=== PATIENT | female | born 1950 | race Caucasian/White ===

== ENCOUNTER 2017-05-17 10:42 | Emergency (ER) | payer BC ==
[~2017-05-17] VITALS: Ht 157.5 cm; Wt 64.5 kg
[2017-05-17 10:49] VITALS: Ht 157.5 cm; Wt 64.5 kg
[2017-05-17 11:44] LABS: BASOPHILS % 0.6 % (0.0-2.0); EOSINOPHILS # 0.2 10^3/ul (0.0-0.5); EOSINOPHILS % 3.5 % (0.0-7.0); HEMATOCRIT 39.3 % (37.0-47.0); HEMOGLOBIN 13.2 g/dl (12.0-16.0); LYMPHOCYTES # 1.4 10^3/ul (0.8-2.9); LYMPHOCYTES % 29.6 % (15.0-51.0); MEAN CORPUSCULAR HEMOGLOBIN 30.8 pg (29.0-33.0); MEAN CORPUSCULAR HGB CONC 33.6 g/dl (32.0-37.0); MEAN CORPUSCULAR VOLUME 91.6 fl (82.0-101.0); MEAN PLATELET VOLUME 11.5 fl (7.4-10.4); MONOCYTE # 0.4 10^3/ul (0.3-0.9); MONOCYTES % 7.3 % (0.0-11.0); NEUTROPHIL # 2.8 10^3/ul (1.6-7.5); NEUTROPHILS % 58.8 % (39.0-77.0); PLATELET COUNT 189 10^3/UL (140-415); RED BLOOD COUNT 4.29 10^6/ul (4.20-5.40); RED CELL DISTRIBUTION WIDTH 12.3 % (11.5-14.5); WHITE BLOOD COUNT 4.8 10^3/ul (4.8-10.8)
--- NOTE | 2017-05-17 12:05 | ERD ---
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 The patient was sent to the emergency room for further evaluation of her DVT. The patient does describe intermittent leg cramping over several weeks. She denies any chest pain or shortness breath, no pleuritic pain, no other symptoms currently. The patient has not had a history of bleeding, no intracranial hemorrhage, no rectal bleeding and she tolerated anticoagulation in the past when she had her clot. The patient states that she had a provoked DVT years ago from a hysterectomy. Unclear trigger this time. ROS All systems reviewed and are negative except as per history of present illness. Medications Home Meds Active Scripts Apixaban* (Eliquis*) 5 Mg Tablet, 5 MG PO BID for 30 Days, TAB Prov:KRISTIE BUCHANAN MD 05/17/17 PMhx/Soc History of Surgery: Yes (appendectomy, hysterectomy) Hx Miscellaneous Medical Probl: Yes (gallstones, dvt) Hx Alcohol Use: No Hx Substance Use: No Hx Tobacco Use: No Smoking Status: Never smoker FmHx Family History: No diabetes Physical Exam Vitals Vital Signs Date Time Temp Pulse Resp B/P Pulse Ox O2 Delivery O2 Flow Rate FiO2 05/17/17 10:49 97.4 75 18 118/62 99 Physical Exam General: Well developed, well nourished, no acute distress Head: Normocephalic, atraumatic. Eyes: Pupils equally reactive, EOM intact ENT: Moist mucous membranes Neck: Supple, no lymphadenopathy Respiratory: Lungs clear bilaterally, no distress Cardiovascular: RRR, no murmurs, rubs, or gallops Abdominal: Soft, non-tender, non-distended, no peritoneal signs : Deferred MSK: Scant left lower extremity edema greater than right, no unilateral swelling , 5/5 strength Neurologic: Alert and oriented, moving all extremities, normal speech, no focal weakness, no cerebellar signs Skin: No rash Psych: Normal mood Result Diagram: 05/17/17 1120 Results 24 hrs Laboratory Tests Test 05/17/17 11:20 White Blood Count 4.810^3/ul Red Blood Count 4.2910^6/ul Hemoglobin 13.2g/dl Hematocrit 39.3% Mean Corpuscular Volume 91.6fl Mean Corpuscular Hemoglobin 30.8pg Mean Corpuscular Hemoglobin Concent 33.6g/dl Red Cell Distribution Width 12.3% Platelet Count 46844^3/UL Mean Platelet Volume 11.5fl Neutrophils % 58.8% Lymphocytes % 29.6% Monocytes % 7.3% Eosinophils % 3.5% Basophils % 0.6% Nucleated Red Blood Cells % 0.0/100WBC Neutrophils # 2.810^3/ul Lymphocytes # 1.410^3/ul Monocytes # 0.410^3/ul Eosinophils # 0.210^3/ul Basophils # 0.010^3/ul Nucleated Red Blood Cells # 0.010^3/ul Prothrombin Time 12.9Sec Prothrombin Time Ratio 1.0 INR International Normalized Ratio 0.97 Activated Partial Thromboplast Time 28.1Sec Procedures/MDM EKG, MONITORS, & DIAGNOSTIC IMAGING: I reviewed the lower extremity duplex from the physician's office today. The formal read shows a positive partial DVT at the left common femoral vein and left saphenous no other evidence of DVT. LAB INTERPRETATION: No coagulopathy MEDICAL DECISION MAKING: The patient presents with a new diagnosis of a DVT to the left lower extremity with minimal symptoms. No signs or symptoms concerning for pulmonary embolism. The patient has no complications to anticoagulation. The patient's HAS-BLED score is 0. I believe the benefits of anticoagulation outweigh the risk. The patient will be initiated on Eliquis. I was able to speak to the patient's bleaching supervisor to recommend anticoagulation and states no contraindications. I was able speak to the patient's primary care physician Dr. Arriaza who agrees with anticoagulation and will follow up in his office. The patient is undergoing preop for gallbladder surgery. Further conversations with primary care as needed. ER COURSE: The patient has no evidence of coagulopathy. She was initiated on Eliquis. A prescription for Eliquis will be provided. I kept the patient and/or family informed of laboratory and diagnostic imaging results throughout the emergency room course. DISPOSITION PLAN: We discussed follow up with the patient's primary care doctor within 24 to 48 hours as needed. We also discussed return to the emergency room for worsening symptoms or worsening condition. Outpatient referral: [None required] Discharge Medications: Eliquis 10 mg twice daily for 7 days then 5 mg twice daily Departure Diagnosis: Primary Impression: DVT (deep venous thrombosis) DVT location: lower extremity Affected thrombotic vein of extremity: other lower extremity vein Laterality: left Chronicity: acute Qualified Code: I82.492 - Acute deep vein thrombosis (DVT) of other specified vein of left lower extremity Condition: Stable KRISTIE BUCHANAN MD May 17, 2017 12:05
[2017-05-17 12:09] LABS: PARTIAL THROMBOPLASTIN TIME 28.1 Sec (25.0-35.0)
[2017-05-17] MEDS ORDERED: APIX5TAB PO (12:17)
[2017-05-17 12:57] LABS: INR 0.97; PROTIME 12.9 Sec (12.2-14.2)
[2017-05-17 13:59] VITALS: BP 120/73; PULSE 80; RESP 17
== END 2017-05-17 14:00 | disposition home or self-care (01) ==
LOC: E/R 10:42
DX: I82.492 Acute embolism and thrombosis of other specified deep vein of left lower extremity (principal); Z79.01 Long term (current) use of anticoagulants
CPT/HCPCS: 36415; 85025; 85610; 85730; 99283

== ENCOUNTER 2017-09-13 13:33 | Inpatient (IN) | payer BC ==
[~2017-09-13] VITALS: Ht 165.1 cm; Wt 63.9 kg
[~2017-09-13 13:33] MED LIST: APIX5TAB PO
[2017-09-13] MEDS ORDERED: SOD CHLORIDE 0.9% 1,000 ML IV STA (17:11)
[2017-09-13] MEDS ORDERED: METOCLOPRAMIDE 10 MG INJ IV STA (17:11)
[2017-09-13 17:49] LABS: BASOPHILS % 0.5 % (0.0-2.0); EOSINOPHILS # 0.2 10^3/ul (0.0-0.5); HEMATOCRIT 42.9 % (37.0-47.0); HEMOGLOBIN 14.2 g/dl (12.0-16.0); LYMPHOCYTES # 1.8 10^3/ul (0.8-2.9); LYMPHOCYTES % 29.6 % (15.0-51.0); MEAN CORPUSCULAR HEMOGLOBIN 30.1 pg (29.0-33.0); MEAN CORPUSCULAR HGB CONC 33.1 g/dl (32.0-37.0); MEAN CORPUSCULAR VOLUME 91.1 fl (82.0-101.0); MEAN PLATELET VOLUME 10.8 fl (7.4-10.4); MONOCYTE # 0.4 10^3/ul (0.3-0.9); NEUTROPHIL # 3.7 10^3/ul (1.6-7.5); NEUTROPHILS % 60.7 % (39.0-77.0); PLATELET COUNT 208 10^3/UL (140-415); RED BLOOD COUNT 4.71 10^6/ul (4.20-5.40); RED CELL DISTRIBUTION WIDTH 12.3 % (11.5-14.5)
[2017-09-13] MEDS ORDERED: ACETAMINOPHEN 325 MG TAB PO ONE (18:00)
[2017-09-13 18:14] LABS: ALANINE AMINOTRANSFERASE 39 IU/L (13-69); ALBUMIN 4.2 g/dl (3.3-4.9); ALBUMIN/GLOBULIN RATIO 1.13; ALKALINE PHOSPHATASE 109 IU/L (42-121); ANION GAP 11 (8-16); ASPARTATE AMINO TRANSFERASE 24 IU/L (15-46); BILIRUBIN,INDIRECT 0.6 mg/dl (0-1.1); BILIRUBIN,TOTAL 0.6 mg/dl (0.2-1.3); BLOOD UREA NITROGEN 15 mg/dl (7-20); CALCIUM 9.5 mg/dl (8.4-10.2); CARBON DIOXIDE 30 mmol/L (21-31); CHLORIDE 105 mmol/L (97-110); CREATININE 0.59 mg/dl (0.44-1.00); GLUCOSE 92 mg/dl (70-220); POTASSIUM 4.3 mmol/L (3.5-5.1); SODIUM 142 mmol/L (135-144); TOTAL PROTEIN 7.9 g/dl (6.1-8.1)
[2017-09-13 18:28] LABS: TROPONIN-I < 0.012 ng/ml (0.00-0.12)
[2017-09-13] MEDS: BENZTROPINE 2 MG INJ IV ONE ×2 (18:35→18:40)
--- NOTE | 2017-09-13 18:47 | RADRPT ---
PROCEDURE: Noncontrast CT Head. CLINICAL INDICATION: Sign onset "head heaviness with sweats" TECHNIQUE: Noncontrast CT of the head was obtained. The administered radiation dose was CTDI vol = 45.01 mGy, DLP = 720.23 mGy-cm. One or more of the following dose reduction techniques were used: Au tomated exposure control, Adjustment of the mA and/or kV according to patient size, or Use of iterat kaylee reconstruction technique. COMPARISON: There are no similar studies submitted for comparison. FINDINGS: There is no acute intracranial hemorrhage, midline shift, or mass effect. The cerebral herrera-white ma tter differentiation appears preserved. No extra-axial collection is seen. There is mild diffuse cer ebral volume loss. A few small patchy areas of low attenuation in the left navarro radiata and centru m semiovale are nonspecific, but suggestive of chronic ischemic change. These patchy low attenuation lesions are in a somewhat linear AP orientation, compatible with unilateral white matter watershed/ border zone distribution, suggesting possible left internal carotid artery atherosclerotic disease/s tenosis. The basal cisterns are preserved. The posterior fossa structures are grossly unremarkable, although suboptimally evaluated with CT secondary to beam-hardening artifact. The orbits, as visuali zed, are grossly unremarkable. The visualized paranasal sinuses and mastoid air cells are clear. No acute fracture or suspicious osseous lesion is identified. IMPRESSION: 1. No evidence of an acute intracranial process. 2. A few small patchy areas of low attenuation in the left navarro radiata and centrum semiovale, non specific, but suggestive of chronic ischemic change. These lesions are in a somewhat linear AP orien tation, compatible with unilateral white matter watershed/border zone distribution and suggesting po ssible left internal carotid artery (extracranial and / or intracranial) atherosclerotic disease/michael nosis. Consider CTA head/neck for further evaluation. If there is clinical concern for acute ischemi a, MRI brain with diffusion weighted imaging may provide a more sensitive evaluation. 3. Mild diffuse cerebral volume loss. Call report was made to Dr. Reinaldo Wood at 18:43 on 09/13/2017. RPTAT: [facility] Ryanny Vaughn, Physician Date Time Electronically viewed and signed by Govind Mendes, Physician on 09/13/2017 18:47 RC/
[2017-09-13 18:58] LABS: ADD UMIC NO; UR ASCORBIC ACID NEGATIVE (NEGATIVE); UR BILIRUBIN (Dip) NEGATIVE (NEGATIVE); UR BLOOD (Dip) NEGATIVE (NEGATIVE); UR CLARITY CLEAR (CLEAR); UR COLOR COLORLESS (YELLOW); UR GLUCOSE (Dip) NEGATIVE (NEGATIVE); UR KETONES (Dip) NEGATIVE (NEGATIVE); UR LEUKOCYTE ESTERASE (Dip) NEGATIVE Leu/ul (NEGATIVE); UR NITRITE (Dip) NEGATIVE (NEGATIVE); UR SPECIFIC GRAVITY (Dip) 1.003 (1.003-1.030); UR TOTAL PROTEIN (Dip) NEGATIVE (NEGATIVE); UR UROBILINOGEN (Dip) NEGATIVE (NEGATIVE)
[2017-09-13] MEDS ORDERED: ACETAMINOPHEN 325 MG TAB PO PRN ×2 (20:30→23:00)
[2017-09-13] MEDS ORDERED: ASPIRIN 81 MG TAB PO ONE (20:30)
[2017-09-13] MEDS ORDERED: ONDANSETRON 4 MG INJ IV PRN ×2 (20:30→23:00)
--- NOTE | 2017-09-13 20:52 | ERD ---
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 She also felt dizzy as an very lightheaded and was diaphoretic. She states that this is somewhat resolved her head still feels somewhat heavy. It is her birthday and she was feeling well all day until this episode. She has no history of stroke. Has no other neurological deficits or weaknesses. No chest pain or shortness of breath. ROS All systems reviewed and are negative except as per history of present illness. Medications Home Meds Active Scripts Apixaban* (Eliquis*) 5 Mg Tablet, 5 MG PO BID for 30 Days, TAB Prov:KRISTIE BUCHANAN MD 05/17/17 PMhx/Soc History of Surgery: Yes (appendectomy, hysterectomy) Anesthesia Reaction: No Hx Neurological Disorder: No Hx Respiratory Disorders: No Hx Cardiac Disorders: Yes (HTN) Hx Psychiatric Problems: No Hx Miscellaneous Medical Probl: Yes (gallstones, dvt, HYPOTHYROID) Hx Alcohol Use: No Hx Substance Use: No Hx Tobacco Use: No Smoking Status: Never smoker Physical Exam Vitals Vital Signs Date Time Temp Pulse Resp B/P Pulse Ox O2 Delivery O2 Flow Rate FiO2 09/13/17 18:30 69 18 102/58 100 Room Air 09/13/17 13:37 98.0 73 18 137/66 100 Physical Exam Const: [] No distress Head: Atraumatic Eyes: Normal Conjunctiva EOMI, PERRLA ENT: Normal External Ears, Nose and Mouth. Neck: Full range of motion..~ No meningismus. Resp: Clear to auscultation bilaterally Cardio: Regular rate and rhythm, no murmurs Abd: Soft, non tender, non distended. Normal bowel sounds Skin: No petechiae or rashes Ext: No cyanosis, or edema Neur: Awake and alert oriented 3, cranial nerves II through XII intact, no cerebellar deficits, NIH equals 0 Psych: Normal Mood and Affect Result Diagram: 09/13/17 17309/13/17 173 Results 24 hrs Laboratory Tests Test 09/13/17 17:29 09/13/17 17:30 09/13/17 18:15 Lactic Acid Level 1.0mmol/L White Blood Count 6.010^3/ul Red Blood Count 4.7110^6/ul Hemoglobin 14.2g/dl Hematocrit 42.9% Mean Corpuscular Volume 91.1fl Mean Corpuscular Hemoglobin 30.1pg Mean Corpuscular Hemoglobin Concent 33.1g/dl Red Cell Distribution Width 12.3% Platelet Count 16592^3/UL Mean Platelet Volume 10.8fl Neutrophils % 60.7% Lymphocytes % 29.6% Monocytes % 6.0% Eosinophils % 3.0% Basophils % 0.5% Nucleated Red Blood Cells % 0.0/100WBC Neutrophils # 3.710^3/ul Lymphocytes # 1.810^3/ul Monocytes # 0.410^3/ul Eosinophils # 0.210^3/ul Basophils # 0.010^3/ul Nucleated Red Blood Cells # 0.010^3/ul Sodium Level 142mmol/L Potassium Level 4.3mmol/L Chloride Level 105mmol/L Carbon Dioxide Level 30mmol/L Anion Gap 11 Blood Urea Nitrogen 15mg/dl Creatinine 0.59mg/dl Glucose Level 92mg/dl Calcium Level 9.5mg/dl Total Bilirubin 0.6mg/dl Direct Bilirubin 0.00mg/dl Indirect Bilirubin 0.6mg/dl Aspartate Amino Transf (AST/SGOT) 24IU/L Alanine Aminotransferase (ALT/SGPT) 39IU/L Alkaline Phosphatase 109IU/L Troponin I < 0.012ng/ml Total Protein 7.9g/dl Albumin 4.2g/dl Globulin 3.70g/dl Albumin/Globulin Ratio 1.13 Lipase 34U/L Urine Color COLORLESS Urine Clarity CLEAR Urine pH 7.0 Urine Specific [place] 1.003 Urine Ketones NEGATIVEmg/dL Urine Nitrite NEGATIVEmg/dL Urine Bilirubin NEGATIVEmg/dL Urine Urobilinogen NEGATIVEmg/dL Urine Leukocyte Esterase NEGATIVELeu/ul Urine Hemoglobin NEGATIVEmg/dL Urine Glucose NEGATIVEmg/dL Urine Total Protein NEGATIVEmg/dl Current Medications Medications (Trade) Dose Ordered Sig/Krissy Route PRN Reason Start Time Stop Time Status Last Admin Dose Admin Sodium Chloride (NS) 1,000 ml @ 1,000 mls/hr Q1H STAT IV 09/13/17 17:11 09/13/17 18:10 DC 09/13/17 17:42 Metoclopramide HCl (Reglan) 10 mg ONCE STAT IV 09/13/17 17:11 09/13/17 17:12 DC 09/13/17 17:42 Acetaminophen (Tylenol Tab) 650 mg ONCE ONCE PO 09/13/17 18:00 09/13/17 18:01 DC 09/13/17 18:35 Benztropine Mesylate (Cogentin) 1 mg ONCE ONCE IV 09/13/17 18:30 09/13/17 18:31 DC Aspirin (Aspirin) 324 mg ONCE ONCE PO 09/13/17 20:30 09/13/17 20:31 DC Ondansetron HCl (Zofran Inj) 4 mg ER BRIDGE PRN IV NAUSEA AND/OR VOMITING 09/13/17 20:30 09/14/17 20:29 Acetaminophen (Tylenol Tab) 650 mg ER BRIDGE PRN PO MILD PAIN/FEVER 09/13/17 20:30 09/14/17 20:29 Procedures/MDM Possible chronic cerebral infarction. Patient had a concerning episode of head heaviness with diaphoresis. Radiologist called me after reviewed the CT to tell me that there was significant herrera-white matter changes that would suggest a possible chronic infarct. I recommended a CTA of the head and neck is he is seen this with carotid infarctions. Patient also has a chronic DVT that is been present for years and her femoral vein. She possibly does have a clotting disorder. Is going to be admitted for this. I am admitting to Dr. Steele telemetry for further monitoring and workup to likely receive an MRI as well. EKG interpretation: Normal sinus rhythm rate of 66, normal axis, normal intervals, no ST or T-wave changes concerning for acute ischemia. Normal EKG ore storage drier interpretation: Normal sinus rhythm without arrhythmia CT head interpretation: Since he is at the herrera-white matter differentiation border on the left concerning for possible chronic infarct or other process. I see no acute hemorrhage, no mass-effect, no midline shift, no skull fracture. Departure Diagnosis: Primary Impression: CVA (cerebral vascular accident) Condition: Serious ASAD OWENS DO Sep 13, 2017 20:52
[2017-09-13] MEDS ORDERED: SOD CHLORIDE 0.9% 100 ML ONE (21:00)
[2017-09-13] MEDS ORDERED: IOHEXOL 100 ML ONE (21:00)
[2017-09-13 21:21] VITALS: Ht 165.1 cm; Wt 63.9 kg
[2017-09-13 21:25] VITALS: BP 110/59; PULSE 72; RESP 16
[2017-09-13] MEDS ORDERED: PROP10TA6 PO (21:30)
[2017-09-13] MEDS ORDERED: RANI150T5 PO (21:30)
[2017-09-13] MEDS ORDERED: IBUP-1542 PO (21:30)
[2017-09-13] MEDS ORDERED: LEVO100T87 PO (21:30)
[2017-09-13 21:35] VITALS: PULSE 62
[2017-09-13] MEDS ORDERED: NACL 0.9% 3 ML SYG IV SCH (23:00)
[2017-09-13] MEDS ORDERED: morphine 2 MG INJ IV PRN (23:00)
[2017-09-13] MEDS ORDERED: SOD CHLORIDE 0.9% 250 ML IV ONE (23:00)
[2017-09-13] MEDS ORDERED: ALBUTEROL/IPRATROPIUM (NEB) 3 ML AMP HHN PRN (23:00)
--- NOTE | 2017-09-13 23:43 | RADRPT ---
PROCEDURE: CTA head and neck CLINICAL INDICATION: White matter changes and CT. TECHNIQUE: The study was performed utilizing a multidetector CT scanner. Direct thin section kim tania 0.625 mm axial sections were obtained through the head and neck after the uneventful administrat ion of 100 ml of Omnipaque 350 nonionic intravenous contrast material. Coronal and sagittal as well as maximal intensity projection reformations were obtained. 3-D images were made. The images were reviewed on a PACS workstation. The total 95.91 mGy and the 521.63 mGy-cm. One or more of the follow ing dose reduction techniques were utilized: Automated exposure control, adjustment of the mA and/o r kV according to patient size, use of iterative reconstruction technique. Carotid stenosis is calcu lated in accordance with NASCET criteria guidelines with direct measurements of the narrowest segmen t of stenosis compared with distal luminal diameter of the normal distal extracranial internal carot id artery. COMPARISON: CT brain 09/13/2017 FINDINGS: CTA NECK: Aortic arch: The aortic arch is normal in caliber. Normal appearance of the origin of the great vessels. Common carotid arteries: The common carotid arteries are patent and normal in caliber bilaterally. Internal carotid arteries: MIRIAM/ECA: New punctate fibrocalcific plaque along the medial origin and distal posterolateral internal carotid artery bulb without focal narrowing or plaque ulceration. The distal internal carotid artery is pa tent and normal in caliber. No evidence of hemodynamically significant stenosis. External carotid artery and its branches are normal patent and normal in caliber LICA/ECA : Normal appearance of the internal carotid artery bulb. The distal internal carotid artery is patent and normal in caliber. No evidence of hemodynamically significant stenosis. Vertebral arteries: The vertebral arteries are patent bilaterally with hypoplastic right and dominant left vertebral art montrell. Multilevel degenerative facet arthropathy and cervical spondylosis/enthesopathy. CTA BRAIN: Precontrast CT images of the brain demonstrate the brain parenchyma to the normal attenuation morpho logy with preservation of herrera white differentiation and age appropriate size of the ventricles and subarachnoid spaces. No intracranial hemorrhage or abnormal extra-axial fluid collection. Unremarkab le posterior fossa contents, orbits, brainstem, calvarium, paranasal sinuses, mastoid air cells. No rmal pituitary axis. The internal carotid arteries are patent and normal in caliber without significant atherosclerotic p laque. The vessels of the anterior posterior circulation are patent and demonstrate normal course and calib er without irregularity, focal stenosis or occlusion. The anterior posterior communicating arteries are intact. The basilar artery is patent and normal in caliber. The posterior communicating arteries are patent and normal in caliber. The vertebral arteries are codominant, patent and normal in caliber. No aneurysm or vascular malformation is identified. The dural venous sinuses , cortical, and intrace rebral veins are patent and normal in caliber. IMPRESSION: 1. Minimal fibrocalcific plaque at the origin of the distal right internal carotid artery bulb with out significant focal narrowing or plaque ulceration. The remaining neck vessels are patent and norm al in caliber. No hemodynamically significant stenosis. 2. Normal intracranial vasculature without intracranial aneurysm, vascular malformation or large br anch occlusion. 3. Dominant left vertebral artery RPTAT:[facility] Physician Tegan Date Time Electronically viewed and signed by Physician Tegan on 09/13/2017 23:42 LEON/
[2017-09-14] VITALS (12 sets, daily range): BP systolic 97–107; BP diastolic 49–59; PULSE 61–72; RESP 16–20
[2017-09-14] MEDS: LEVOTHYROXINE 100 MCG TAB PO SCH (06:38)
[2017-09-14] MEDS: APIXABAN 5 MG TABLET PO SCH ×2 (08:43→20:39)
[2017-09-14] MEDS: ASPIRIN 81 MG TAB PO SCH (08:43)
[2017-09-14 09:47] LABS: BASOPHILS % 0.8 % (0.0-2.0); EOSINOPHILS # 0.1 10^3/ul (0.0-0.5); EOSINOPHILS % 3.3 % (0.0-7.0); HEMATOCRIT 41.4 % (37.0-47.0); HEMOGLOBIN 13.5 g/dl (12.0-16.0); LYMPHOCYTES # 1.4 10^3/ul (0.8-2.9); LYMPHOCYTES % 36.1 % (15.0-51.0); MEAN CORPUSCULAR HEMOGLOBIN 29.7 pg (29.0-33.0); MEAN CORPUSCULAR HGB CONC 32.6 g/dl (32.0-37.0); MEAN PLATELET VOLUME 11.1 fl (7.4-10.4); MONOCYTE # 0.3 10^3/ul (0.3-0.9); MONOCYTES % 6.8 % (0.0-11.0); NEUTROPHIL # 2.1 10^3/ul (1.6-7.5); NEUTROPHILS % 52.7 % (39.0-77.0); PLATELET COUNT 193 10^3/UL (140-415); RED BLOOD COUNT 4.55 10^6/ul (4.20-5.40); RED CELL DISTRIBUTION WIDTH 12.7 % (11.5-14.5)
[2017-09-14 10:02] LABS: ALBUMIN 3.7 g/dl (3.3-4.9); ALBUMIN/GLOBULIN RATIO 1.05; BILIRUBIN,INDIRECT 0.9 mg/dl (0-1.1); BILIRUBIN,TOTAL 0.9 mg/dl (0.2-1.3); CALCIUM 9.2 mg/dl (8.4-10.2); CREATININE 0.58 mg/dl (0.44-1.00); MAGNESIUM 1.9 mg/dl (1.7-2.5); POTASSIUM 4.2 mmol/L (3.5-5.1); TOTAL PROTEIN 7.2 g/dl (6.1-8.1)
[2017-09-14 10:35] LABS: THYROID STIMULATING HORMONE 0.697 MIU/L (0.465-4.680)
[2017-09-14] MEDS ORDERED: ATOR20TA65 PO (11:22)
--- NOTE | 2017-09-14 12:48 | RADRPT ---
PROCEDURE: US Lower extremity Venous. CLINICAL INDICATION: Swelling and pain TECHNIQUE: Multiple sonographic images of the bilateral lower extremity deep venous system was obt ained utilizing grayscale, color-flow, compressive sonography and doppler imaging with augmentation. The images were reviewed on a PACS workstation. COMPARISON: None. FINDINGS: There is normal compressibility and flow within the bilateral common femoral, deep femoral, superfic ial femoral, posterior tibial, peroneal and popliteal veins. IMPRESSION: 1. No sonographic evidence for deep venous thrombosis within the bilateral lower extremities. RPTAT: [facility] Physician Omi Date Time Electronically viewed and signed by Physician Omi on 09/14/2017 12:48 SEGUN/
--- NOTE | 2017-09-14 17:39 | RADRPT ---
Echocardiogram Report Patient Name: NADINE CRAFT Gender: Female Date: 1950 Study Date: 14-Sep-2017 Vp Talent Management: Cj Reeves [facility] Location: 55 Ref. Physician: AMNA ALLRED Quality: Good Procedures: Transthoracic echocardiogram with complete 2D, M-Mode, and doppler examination. Indications: Cerebrovascular Accident. 2D/M Mode Doppler Measurement Value Normal Ranges Measurement Value Normal Ranges LVIDd 2D 3.8 3.5 - 5.6 cm AV Peak Jose 1.7 m/sec LVIDs 2D 2.2 2.1 - 4.1 cm AV Peak PG 12.2 mmHg LVPWd 2D 0.9 0.6 - 1.1 cm LVOT Peak Jose 1.3 m/sec IVSd 2D 0.9 0.6 - 1.1 cm LVOT Peak PG 6.8 mmHg AoR Diam 2D 2.7 2.0 - 3.7 cm MV E Peak Jose 1.0 m/sec EDV 2D 60.8 cm3 MV A Peak Jose 0.8 m/sec ESV 2D 10.2 cm3 MV E/A 1.3 LA Dimen 2D 3.1 2.3 - 4.0 cm MV Decel Time 242 msec MV Decel [place] 4 MV E/A 1.3 TR Peak Jose 2.5 m/sec TR Peak PG 25.4 mmHg RVSP 28.0 mmHg Findings Left Ventricle: Normal left ventricular systolic function. Normal left ventricular cavity size. Normal left ventricular wall thickness. Ejection fraction is visually estimated at 5560 %. Tissue Doppler/Mitral Doppler indices are within normal limits. Right Ventricle: Normal right ventricular size. Normal right ventricular systolic function. Left Atrium: The left atrium is normal in size. Right Atrium: The right atrium is normal in size. Mitral Valve: Normal appearance and function of the mitral valve with trace physiologic regurgitation. Aortic Valve: Normal appearance of the aortic valve. No significant aortic stenosis or insufficiency. Tricuspid Valve: Normal appearance of the tricuspid valve. Estimated peak PA systolic pressure 28 mmHg. There is trace tricuspid regurgitation. Pulmonic Valve: Normal pulmonic valve appearance. Pericardium: Normal pericardium with no significant pericardial effusion. Aorta: Normal aortic root. IVC: Normal size and normal respiratory collapse consistent with normal right atrial pressure. Conclusions 1.Normal left ventricular systolic function. Normal left ventricular cavity size. Normal left ventricular wall thickness. Ejection fraction is visually estimated at 55-60 %. Tissue Doppler/Mitral Doppler indices are within normal limits. 2.Normal appearance and function of the mitral valve with trace physiologic regurgitation. 3.Normal appearance of the tricuspid valve. Estimated peak PA systolic pressure 28 mmHg. There is trace tricuspid regurgitation. Electronically Signed By: Kamari Cordova 14-Sep-2017 17:37:56 -0800 Patient Name: NADINE CRAFT Study Date: 14-Sep-2017 [id number]
[2017-09-14] MEDS ORDERED: RANITIDINE 150 MG TAB PO SCH (21:00)
[2017-09-14] MEDS ORDERED: ATORVASTATIN 20 MG TAB PO SCH (21:00)
--- NOTE | 2017-09-14 23:49 | HP ---
Date/Time of Note Date/Time of Note DATE: 09/14/17 TIME: 23:49 Assessment/Plan VTE Prophylaxis VTE Prophylaxis Intervention: heparin Lines/Catheters IV Catheter Type (from Nrsg): Saline Lock Assessment/Plan Assessment/Plan 1. Questionable TIA -CT head and CTA head/neck neg -Aspirin, statin and subq hep for DVT ppx -check 2D-echo, A1c and lipids -consider MRI brain HPI/ROS Admit Date/Time Admit Date/Time Sep 13, 2017 at 20:11 Hx of Present Illness This is a 67 yo female with hx of hypothyroidism, DVT who presented to ER c/o lightheadedness and diffuse headache x 1 hour. Denied focal weakness/numbness, visual disturbances, N/V, CP, SOB. CT head no acute finding and CT angio head/neck without hemodynamically significant stenosis. Currently symptoms have completely resolved. PMH/Family/Social Social History Smoking Status: Former smoker Exam/Review of Systems Vital Signs Vitals Vital Signs Date Time Temp Pulse Resp B/P Pulse Ox O2 Delivery O2 Flow Rate FiO2 09/14/17 20:04 98.1 63 20 104/59 98 09/13/17 21:25 Room Air Intake and Output 09/13/17 09/13/17 09/14/17 15:00 23:00 07:00 Intake Total 60 ml 330 ml Balance 60 ml 330 ml Exam Constitutional: alert, oriented Head: atraumatic, normocephalic Eyes: EOMI, PERRL Respiratory: clear to auscultation, normal air movement Cardiovascular: nl pulses, regular rate and rhythm Gastrointestinal: non-tender, soft Extremities: normal pulses Neurological: nl mental status, nl speech, nl strength Labs Result Diagram: 09/14/1790409/14/17904 Medications Medications Current Medications Ondansetron HCl (Zofran Inj) 4 mg Q6H PRN IV NAUSEA AND/OR VOMITING; Start at 23:00 Aspirin (Aspirin) 81 mg DAILY PO Last administered on 09/14/17t 08:43; Admin Dose 81 MG; Start 09/14/17 at 09:00 Acetaminophen (Tylenol Tab) 650 mg Q6H PRN PO PAIN LEVEL 1-3 OR FEVER; Start 09/13/17 at 23:00 Morphine Sulfate (morphine) 2 mg Q4H PRN IV PAIN LEVEL 7-10; Start 09/13/17 at 23:00 Atorvastatin Calcium (Lipitor) 20 mg HS PO Last administered on 09/14/17 20: 39; Admin Dose 20 MG; Start 09/14/17 at 21:00 Apixaban (Eliquis) 5 mg BID PO Last administered on 09/14/17 20:39; Admin Dose 5 MG; Start 09/14/17 at 09:00 Ranitidine HCl (Zantac) 150 mg HS PO Last administered on 09/14/17 21:45; Admin Dose 150 MG; Start 09/14/17 at 21:00 AMNA ALLRED MD Sep 14, 2017 23:49
[2017-09-15] VITALS (10 sets, daily range): BP systolic 95–102; BP diastolic 50–65; PULSE 56–71; RESP 18–20
[2017-09-15] MEDS: LEVOTHYROXINE 100 MCG TAB PO SCH (06:25)
[2017-09-15] MEDS: APIXABAN 5 MG TABLET PO SCH (08:25)
[2017-09-15] MEDS: ASPIRIN 81 MG TAB PO SCH (08:25)
--- NOTE | 2017-09-15 09:28 | PN ---
Date/Time of Note Date/Time of Note LATE ENTRY DATE: 09/14/17 Assessment/Plan VTE Prophylaxis VTE Prophylaxis Intervention: SCD's Lines/Catheters IV Catheter Type (from Nrsg): Saline Lock Assessment/Plan Chief Complaint/Hosp Course Assessment and plan 1. Suspect TIA. Head CT and CT of the neck were negative for any acute findings. MRI of the brain was ordered. Follow-up result. 2. Hypothyroidism. Continue Synthroid Disposition and plan: Follow-up with MRI of the brain. If no acute findings anticipate discharge within the next 24 hours. Discussed plan of care with Dr. Huff Problems: Subjective 24 Hr Interval Summary Free Text/Dictation no s/s of distress. was working with physical therapy during visit Exam/Review of Systems Vital Signs Vitals Vital Signs Date Time Temp Pulse Resp B/P Pulse Ox O2 Delivery O2 Flow Rate FiO2 09/15/17 08:30 66 09/15/17 07:42 97.8 19 102/53 96 09/13/17 21:25 Room Air Intake and Output 09/14/17 09/14/17 09/15/17 15:00 23:00 07:00 Intake Total 760 ml 80 ml Balance 760 ml 80 ml Exam Constitutional: alert, oriented Psych: nl mood/affect Head: atraumatic, normocephalic Neck: non-tender, supple Respiratory: clear to auscultation, normal air movement Cardiovascular: nl pulses, regular rate and rhythm Gastrointestinal: non-tender, soft Musculoskeletal: nl extremities to inspection Extremities: normal pulses 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, nl mental status, nl speech Skin: nl turgor Results Result Diagram: 09/14/1790409/14/17904 Medications Medications Current Medications Ondansetron HCl (Zofran Inj) 4 mg Q6H PRN IV NAUSEA AND/OR VOMITING; Start at 23:00 Aspirin (Aspirin) 81 mg DAILY PO Last administered on 09/15/17t 08:25; Admin Dose 81 MG; Start 09/14/17 at 09:00 Acetaminophen (Tylenol Tab) 650 mg Q6H PRN PO PAIN LEVEL 1-3 OR FEVER; Start 09/13/17 at 23:00 Morphine Sulfate (morphine) 2 mg Q4H PRN IV PAIN LEVEL 7-10; Start 09/13/17 at 23:00 Atorvastatin Calcium (Lipitor) 20 mg HS PO Last administered on 09/14/17 20: 39; Admin Dose 20 MG; Start 09/14/17 at 21:00 Apixaban (Eliquis) 5 mg BID PO Last administered on 09/15/17 08:25; Admin Dose 5 MG; Start 09/14/17 at 09:00 Ranitidine HCl (Zantac) 150 mg HS PO Last administered on 09/14/17 21:45; Admin Dose 150 MG; Start 09/14/17 at 21:00 TYSON RODRIGUEZ Sep 15, 2017 09:28
--- NOTE | 2017-09-15 14:31 | PDOCDIS ---
Discharge Instructions DIAGNOSIS Discharge Diagnosis 1. Suspect TIA 2. hypothyroidism CONDITION Patient Condition: Stable HOME CARE INSTRUCTIONS: Special Diet: Low cholesterol FOLLOW UP/APPOINTMENTS Follow-up Plan 1. Follow up with your primary care provider in one week TYSON RODRIGUEZ Sep 15, 2017 14:31
--- NOTE | 2017-09-15 19:49 | RADRPT ---
PROCEDURE: MR Brain without contrast. CLINICAL INDICATION: Possible cerebrovascular accident. TECHNIQUE: Noncontrast MRI of the brain, with axial, sagittal and coronal images. T1-weighted, FLA IR, T2 star and diffusion-weighted images were obtained. COMPARISON: Noncontrast CT examination of the head and CT angiography of the head dated 09/13/2017. FINDINGS: No diffusion weighted abnormalities are seen to suggest the presence of acute ischemia or recent inf arct. No hypointense signal abnormalities are seen on the GRE images to suggest the presence of blo od degradation products. There is no evidence of intracranial hemorrhage, mass effect, or midline s hift. No extra-axial fluid collections are seen. The ventricles and sulci are normal in size and con figuration. Extensive bilateral focal white matter lesions are seen on today's axial FLAIR and T2-weighted serie s. Findings may represent early changes of small vessel disease white matter. Differential considera tions include other nonspecific white matter disease, such as multiple sclerosis. Multiple sclerosis is not preferred, as these lesions appear to have a more lateral white matter distribution. No ricki lar lesions are seen in the cerebellum or lexi. Otherwise, the signal intensity is normal throughout the cerebrum, brainstem, and cerebellum. Normal flow voids are visible in the proximal intracranial arteries and dural sinuses, indicating pa tency. The visualized paranasal sinuses are grossly clear. IMPRESSION: 1. Extensive white matter disease is seen suggesting early changes of small vessel disease white mat ter, and differential considerations include other nonspecific white matter disease. 2. No evident acute hemorrhage, acute infarct or mass. RPTAT: [facility] Physician Anthony Date Time Electronically viewed and signed by Physician Anthony on 09/15/2017 02:19 RS/
== END 2017-09-15 17:00 | disposition home or self-care (01) | DRG 69 ==
LOC: E/R 13:33 → MS4 20:11
PROVIDERS: ADMIT Internal Medicine; ATTEND Internal Medicine
DX: G45.9 Transient cerebral ischemic attack, unspecified (principal); I10 Essential (primary) hypertension; E03.9 Hypothyroidism, unspecified; Z90.710 Acquired absence of both cervix and uterus; Z86.718 Personal history of other venous thrombosis and embolism; Z79.01 Long term (current) use of anticoagulants; Z79.02 Long term (current) use of antithrombotics/antiplatelets; Z79.82 Long term (current) use of aspirin
CPT/HCPCS: 36415; 70450; 70496; 70498; 70551; 80053; 80061; 81003; 83036; 83605; 83690; 83735; 84443; 84484; 85025; 92523; 92610; 93005; 93306; 93970; 96374; 97161; J0515; J2765; J7030; J7040; Q9967

== ENCOUNTER 2018-12-23 17:35 | Emergency (ER) | payer BC ==
[~2018-12-23] VITALS: Ht 160 cm; Wt 75.5 kg
[~2018-12-23 17:35] MED LIST changes: +ATOR20TA65 PO; +IBUP-1542 PO; +LEVO100T8 PO; +PROP10TA6 PO; +RANI150T5 PO
[2018-12-23 17:41] VITALS: BP 138/79; PULSE 70; RESP 16; Ht 160 cm; Wt 75.5 kg
[2018-12-23] MEDS ORDERED: APIX5TAB PO (22:25)
--- NOTE | 2018-12-24 00:16 | ERD ---
ER Documentation Chief Complaint Chief Complaint Pt has been out of Eliquis 5mg BID x 2 days HPI 68 year-old [female] coming in today with Chief Complaint: Medication refill History of Present Illness: Patient reporting currently on Eliquis and has been out of her medication for 2 days. Reporting unable to get an appointment with Dr. Jay. Patient denies any other associated symptoms. Review of systems: All systems were reviewed and are negative except for what is indicated in the history of present illness. Past Medical History: CVA, DVT, HTN, GERD, hyperlipidemia Social History: [Patient denies tobacco, alcohol, elicit drug use] Medications: [Reviewed as documented Nursing Notes] Allergies: [NKDA] Social Concerns: Denies ROS All systems reviewed and are negative except as per history of present illness. Medications Home Meds Active Scripts Apixaban* (Eliquis*) 5 Mg Tablet, 5 MG PO BID, #30 TAB Prov:FAISAL PHILLIPS NP 12/23/18 Atorvastatin Calcium (Atorvastatin Calcium) 20 Mg Tablet, 20 MG PO HS, #30 TAB Prov:TYSON RODRIGUEZ 09/14/17 Apixaban* (Eliquis*) 5 Mg Tablet, 5 MG PO BID for 30 Days, TAB Prov:KRISTIE BUCHANAN MD 05/17/17 Reported Medications Ibuprofen* (Ibuprofen*) 600 Mg Tablet, 600 MG PO Q6 for PAIN LEVEL 1-5, TAB 09/13/17 Ranitidine Hcl* (Ranitidine Hcl*) 150 Mg Tablet, 150 MG PO HS, #30 TAB 09/13/17 Propranolol Hcl* (Propranolol Hcl*) 10 Mg Tablet, 5 MG PO WITH BREAKFAST DINNE, TAB 09/13/17 Levothyroxine Sodium* (Levothyroxine Sodium*) 100 Mcg Tablet, 100 MCG PO BEFORE BREAKFAST, #30 TAB 09/13/17 Allergies Allergies: Coded Allergies: No Known Allergy (Unverified , 09/13/17) PMhx/Soc History of Surgery: Yes (Appendectomy, hysterectomy) Anesthesia Reaction: No Hx Neurological Disorder: No Hx Respiratory Disorders: No Hx Cardiac Disorders: Yes (Hypercholesteremia) Hx Psychiatric Problems: No Hx Miscellaneous Medical Probl: Yes (see eval, thrombosis) Hx Alcohol Use: No Hx Substance Use: No Hx Tobacco Use: No Smoking Status: Never smoker Physical Exam Vitals Vital Signs Date Temp Pulse Resp B/P (MAP) Pulse Ox O2 O2 Flow FiO2 Time Delivery Rate 12/23/18 97.0 70 16 138/79 100 17:41 (98) Physical Exam Const: No acute distress Head: Atraumatic Eyes: Normal Conjunctiva ENT: Normal External Ears, Nose and Mouth. Neck: Full range of motion. No meningismus. Resp: Clear to auscultation bilaterally Cardio: Regular rate and rhythm, no murmurs Abd: Soft, non tender, non distended. Normal bowel sounds Skin: No petechiae or rashes Back: No midline or flank tenderness Ext: No cyanosis, or edema Neur: Awake and alert Psych: Normal Mood and Affect Procedures/MDM ED course includes a thorough examination and history. ED course includes education of patient getting into see Dr. Jay, for monitoring and medication refill. Educated will give 2 weeks dose until patient can get in to see prescribing doctor. Low suspicion for life-threatening medical emergency. Otherwise healthy patient presenting with medication refill request as characterized by history, physical exam findings . No respiratory distress, otherwise relatively well appearing and nontoxic. Patient educated on diagnoses, prescriptions [Eliquis], follow-up care, return precautions. Strict return precautions given for worsening condition; questions answered discharge. Disposition for discharge with followup in 2-3 days with PCP/clinic. Departure Diagnosis: Primary Impression: Encounter for medication refill Condition: Stable Patient Instructions: Taking Medicine Safely Referrals: KIARA GURROLA (PCP) Additional Instructions: Te damos un suministro de Eliquis para dos semanas. Debe visitar al Dr. Jay para recargar los medicamentos antes de las 2 semanas. FAISAL PHILLIPS NP Dec 24, 2018 00:16
== END 2018-12-23 22:45 | disposition home or self-care (01) ==
LOC: FTE 17:35
DX: Z76.0 Encounter for issue of repeat prescription (principal)
CPT/HCPCS: 99281